=== PATIENT | female | born 1990 | race American Indian/Alaskan Native ===

== ENCOUNTER 2020-10-15 02:29 | Outpatient (CLI) | payer MEDICAID ==
[2020-10-15 03:08] VITALS: BP 95/50
[2020-10-15] MEDS ORDERED: LACTATED RINGERS 1,000 ML IV ONE (03:19)
[2020-10-15 03:42] LABS: Bacteria,Urine 1+ /HPF (Negative); Bilirubin,Urine NEG (Negative); Blood,Urine NEG (Negative); Color,Urine Yellow (Yellow); Mucus,Urine FEW /HPF; Urobilinogen,Urine < 2.0 mg/dL (<2.0)
== END 2020-10-15 05:18 | disposition home or self-care (01) ==
LOC: TRG 02:29 → APU 02:34 → TRG 05:18
PROVIDERS: ATTEND Obstetrics & Gynecology
DX: O62.9 Abnormality of forces of labor, unspecified (principal); O21.2 Late vomiting of pregnancy; Z3A.27 27 weeks gestation of pregnancy
CPT/HCPCS: 59025; 81001; 96360; J7120

== ENCOUNTER 2021-01-12 12:16 | Outpatient (CLI) | payer MEDICAID ==
--- NOTE | 2021-01-12 16:47 | Ultrasound Report ---
ULTRASOUND OBSTETRIC LIMITED INDICATION / CLINICAL INFORMATION: WELL BEING. Clinical Gestational Age (GA): 40.0 weeks.days COMPARISON: None available. FINDINGS: HEART RATE (beats per minute): 143 AMNIOTIC FLUID INDEX (cm) = 7.7 (normal = 7-24 cm) PRESENTATION: Cephalic. ADDITIONAL FINDINGS: None. IMPRESSION: 1. No significant abnormality. ROSALINA within normal limits at 7.7 cm. Signer Name: Lobo Sandra MD Signed: 01/12/2021 4:40 PM Workstation Name: [id number]
--- NOTE | 2021-01-13 07:14 | Ultrasound Report ---
Biophysical profile Ultrasound HISTORY: well being. TECHNIQUE: Grayscale and color imaging performed. COMPARISON: Limited ultrasound from the same day FINDINGS: Fetus received a score of 2 out of 2 for breathing, movement, posture/tone, and ROSALINA. Total score was 8 out of 8. IMPRESSION: Normal biophysical profile. Signer Name: Cesar Morrison MD Signed: 01/13/2021 7:10 AM Workstation Name: [id number]
== END 2021-01-12 17:30 | disposition home or self-care (01) ==
LOC: TRG 12:16 → APU 12:19 → TRG 17:30
PROVIDERS: ATTEND Obstetrics & Gynecology
DX: Z34.93 Encounter for supervision of normal pregnancy, unspecified, third trimester (principal); Z3A.40 40 weeks gestation of pregnancy
CPT/HCPCS: 76815; 76819

== ENCOUNTER 2021-01-18 03:25 | Inpatient (IN) | payer MEDICAID ==
[2021-01-18] MEDS ORDERED: METHYLERGONOVINE MALEATE 0.2 MG/ML VIAL IM PRN (03:55)
[2021-01-18] MEDS ORDERED: CARBOPROST TROMETHAMINE 250 MCG/1 ML INJ IM PRN (03:55)
[2021-01-18] MEDS ORDERED: fentaNYL 100 MCG/2 ML INJ IV PRN (03:55)
[2021-01-18] MEDS ORDERED: OXYTOCIN 10 UNIT/1 ML INJ IM PRN (03:55)
[2021-01-18] MEDS ORDERED: MINERAL OIL 30 ML ORAL LIQD PO PRN ×2 (03:55→08:00)
[2021-01-18] MEDS ORDERED: LIDOCAINE (2%) 20 MG/1 ML VIAL 20 ML MDV INFILTRATI ONE ×2 (03:55→07:25)
[2021-01-18] MEDS ORDERED: ONDANSETRON 4 MG/2 ML INJ IV PRN ×2 (03:55→09:00)
[2021-01-18] MEDS ORDERED: LOPERAMIDE 2 MG CAP PO PRN (03:55)
[2021-01-18] MEDS ORDERED: ePHEDrine SULFATE 50 MG/1 ML INJ IV PRN ×3 (03:55→08:00)
[2021-01-18] MEDS ORDERED: miSOPROStol 200 MCG TAB PR PRN (03:55)
[2021-01-18] MEDS ORDERED: TERBUTALINE 1 MG/1 ML INJ SUB-Q PRN ×2 (03:55→08:00)
[2021-01-18] MEDS ORDERED: OXYTOCIN DRIP 30 UNITS/500 ML BAG IV SCH ×3 (04:00→08:00)
[2021-01-18] MEDS ORDERED: LACTATED RINGERS 1,000 ML IV SCH ×2 (04:00→08:00)
[2021-01-18 04:17] LABS: Hematocrit 38.8 % (30.3-42.9); Hemoglobin 13.3 gm/dl (10.1-14.3); Mean Corpuscular HGB Conc 34 % (30-34); Mean Corpuscular Volume 89 fl (79-97); Platelet Count 200 K/mm3 (140-440); Red Blood Count 4.34 M/mm3 (3.65-5.03); Red Cell Distribution Width 15.4 % (13.2-15.2)
--- NOTE | 2021-01-18 05:23 | Anesthesia Consultation ---
Anesthesia Consult and Med Hx Date of service: 01/18/21 - Airway Anesthetic Teeth Evaluation: Good ROM Head & Neck: Adequate Mental/Hyoid Distance: Adequate Mallampati Class: Class II Intubation Access Assessment: Good - Pulmonary Exam CTA: Yes - Cardiac Exam Cardiac Exam: RRR - Pre-Operative Health Status ASA Pre-Surgery Classification: ASA2 Proposed Anesthetic Plan: Epidural - Pulmonary Hx Smoking: No Hx Asthma: No Hx Respiratory Symptoms: No SOB: No COPD: No Home Oxygen Therapy: No Hx Pneumonia: No Hx Sleep Apnea: No - Cardiovascular System Hx Hypertension: No Hx Coronary Artery Disease: No Hx Heart Attack/AMI: No Hx Angina: No Hx Percutaneous Transluminal Coronary Angioplasty (PTCA): No Hx Cardia Arrhythmia: No Hx Pacemaker: No Hx Internal Defibrillator: No Hx Valvular Heart Disease: No Hx Heart Murmur: No Hx Peripheral Vascular Disease: No - Central Nervous System Hx Neuromuscular Disorder: No Hx Seizures: No CVA: No Hx Back Pain: No Hx Psychiatric Problems: No - Gastrointestinal Hx Ulcer: No Hx Gastroesophageal Reflux Disease: No - Endocrine Hx Renal Disease: No Hx End Stage Renal Disease: No Hx Cirrhosis: No Hx Liver Disease: No Hx Insulin Dependent Diabetes: No Hx Non-Insulin Dependent Diabetes: No Hx Thyroid Disease: No Hx Hypothyroidism: No Hx Hyperthyroidism: No - Hematic Hx Anemia: No Hx Sickle Cell Disease: No - Other Systems Hx Alcohol Use: No Hx Substance Use: No Hx Cancer: No Hx Obesity: Yes
[2021-01-18] MEDS ORDERED: NALOXONE 2 MG/2 ML INJ IV PRN (05:24)
--- NOTE | 2021-01-18 05:26 | Progress Note ---
Labor Epidural - Labor Epidural Start Time: 04:50 Stop Time: 05:10 Performed by:: EYAD MORRIS Procedure: Patient is requesting a laboring epidural for laboring pain. Patient IDed, H&P reviewed, all questions and concerns were answered, and consent was signed. Timeout was performed at bedside. Patient in sitting position. Sterile prep and drape was performed. [3] ml of 1% lidocaine skin wheal at L[3]- L [4]. 18- gauge Tuohy epidural needle was advanced to loss of resistance with saline technique 6cm. Single dural perforation via 27 guage spinal needle placed through the shaft of Epidural needle. Positive CSF via spinal needle. Negative CSF negative blood via Epidural needle. Epidural catheter advanced to [10] centimeters. [NEGATIVE] Aspiration [NEGATIVE] test dose. Negative Paresthesia. Sterile dressing applied. Patient tolerated procedure.
[2021-01-18] MEDS ORDERED: fentaNYL-BUPIV 2 MCG/ML-0.125% 200 MCG/100 ML BAG EPIDURAL SCH (06:00)
--- NOTE | 2021-01-18 07:22 | History and Physical Report ---
History of Present Illness Date of examination: 01/18/21 Date of admission: 01/18/21 03:55 Chief complaint: active labor History of present illness: Patient is a 30-year-old -[place] 4 para 2-0-1-2 female who presents in active labor blood type is B+ antibody screen is negative Pap smear was in normal bilirubin VDRL nonreactive urine culture screen contaminated HPV antigens negative HIV was negative platelets 247,000 due to cultures negative gonorrhea chlamydia culture was negative vitamin D was 23.6 varicella-zoster was immune HIV exclude HSV 2 was positive negative ultrasound at 9 weeks diabetic screen was normal VDRL was nonreactive repeat gonorrhea chlamydia tests were negative hepatitis B was negative HIV test was negative when the patient presented she was already 7 cm dilated. Past History Past Surgical History: no surgical history Family/Genetic History: none - Obstetrical History : 4 Medications and Allergies Allergies Allergy/AdvReac Type Severity Reaction Status Date / Time Penicillins Allergy Shortness Verified 10/15/20 03:19 of Breath Active Meds: Active Medications Carboprost Tromethamine (Carboprost Tromethamine 250 Mcg/1 Ml Inj) 250 mcg IM ONCE PRN PRN Reason: Uterine Bleeding Ephedrine Sulfate (Ephedrine Sulfate 50 Mg/1 Ml Inj) 10 mg IV Q2M PRN PRN Reason: Hypotension Fentanyl (Fentanyl 100 Mcg/2 Ml Inj) 100 mcg IV Q2H PRN PRN Reason: Pain,Severe (7-10) LABOR PAIN Last Admin: 01/18/21 04:36 Dose: 100 mcg Documented by: Lactated Ringer's (Lactated Ringers) 1,000 mls @ 125 mls/hr IV DIRECT BLAIRE Last Admin: 01/18/21 04:33 Dose: 125 mls/hr Documented by: Oxytocin/Sodium Chloride (Pitocin/Ns 30 Unit/500ml) 30 units in 500 mls @ 40 mls/hr IV TITR BLAIRE; Protocol Fentanyl/Bupivacaine/Sodium Chlor (Fentanyl-Bupiv 2 Mcg/Ml-0.125%) 200 mcg in 100 mls @ 12 mls/hr EPIDURAL TITR BLAIRE; Protocol Last Admin: 01/18/21 05:34 Dose: 12 mls/hr Documented by: Loperamide HCl (Loperamide 2 Mg Cap) 2 mg PO ONCE PRN PRN Reason: give with Hemabate Methylergonovine Maleate (Methylergonovine Maleate 0.2 Mg/Ml Vial) 0.2 mg IM ONCE PRN PRN Reason: Uterine Bleeding Mineral Oil (Mineral Oil 30 Ml Oral Liqd) 30 ml PO QHS PRN PRN Reason: Constipation Misoprostol (Misoprostol 200 Mcg Tab) 800 mcg NE ONCE PRN PRN Reason: Uterine Bleeding Naloxone HCl (Naloxone 2 Mg/2 Ml Inj) 0.2 mg IV Q5M PRN PRN Reason: Respiratory sedation Ondansetron HCl (Ondansetron 4 Mg/2 Ml Inj) 4 mg IV Q8H PRN PRN Reason: Nausea And Vomiting Oxytocin (Oxytocin 10 Unit/1 Ml Inj) 10 unit IM ONCE PRN PRN Reason: Uterine Bleeding Terbutaline Sulfate (Terbutaline 1 Mg/1 Ml Inj) 0.25 mg SUB-Q ONCE PRN PRN Reason: Hyperstimulation/Hypertonicity Review of Systems All systems: negative - Vital Signs Vital signs: Vital Signs Temp Pulse Resp BP 98 F 99 H 20 134/73 01/18/21 03:30 01/18/21 03:30 01/18/21 03:30 01/18/21 03:30 Temp Pulse Resp BP Pulse Ox 98 F 90 20 109/54 100 01/18/21 03:30 01/18/21 07:17 01/18/21 03:30 01/18/21 07:11 01/18/21 07:17 - Physical Exam Breasts: Cardiovascular: Regular rate, Normal S1, Normal S2 Lungs: Positive: Clear to auscultation Abdomen: Positive: normal appearance, soft, normal bowel sounds. Negative: distention, tenderness Genitourinary (Female): Positive: normal external genitalia Vulva: both: normal Vagina: Positive: normal moisture. Negative: discharge Cervix: Negative: lesion, discharge Uterus: Positive: normal size, normal contour Adnexa: both: normal Anus/Rectum: Positive: normal perianal skin, heme negative. Negative: rectal mass, hemorrhoids Extremities: Deep Tendon Reflex Grade: Normal +2 - Obstetrical FHR: auscultation normal, category 1 Uterine Contraction Monitor Mode: External Cervical Dilatation: 10 Cervical Effacement Percentage: 100 station: +2 Uterine Contraction Frequency (min): 3min Uterine Contraction Pattern: Regular Uterine Contraction Intensity: Strong/Firm Results Result Diagrams: 01/18/21 04:00 Abnormal lab results 01/18/21 Range/Units 04:00 RDW 15.4 H (13.2-15.2) % All other labs normal. Assessment and Plan term preg in active labor. plan vaginal delivery.
[2021-01-18] MEDS ORDERED: LIDOCAINE (2%) 20 MG/1 ML VIAL 20 ML MDV INFILTRATI SCH (07:30)
--- NOTE | 2021-01-18 08:11 | Procedure Note ---
Date of procedure: 01/18/21 Pre-op diagnosis: term and active labor Post-op diagnosis: same Procedure: MALE . NO TEARS. GOOD APGARS. WGT IS . RECTAL MUCOSA IS INTACT. Anesthesia: epidural Estimated blood loss: other (350ccs) Pathology: none Specimen disposition: discarded Condition: stable Disposition: PACU
[2021-01-18] MEDS ORDERED: WITCH HAZEL/ GLYCERIN PAD TP PRN (09:00)
[2021-01-18] MEDS ORDERED: LANOLIN/ZINC/DIMETHICONE (LANSINOH) 7 GM TP PRN (09:00)
[2021-01-18] MEDS ORDERED: diphenhydrAMINE 25 MG CAP PO PRN (09:00)
[2021-01-18] MEDS ORDERED: PROMETHAZINE 25 MG TAB PO PRN (09:00)
[2021-01-18] MEDS ORDERED: PROMETHAZINE 25 MG RECT SUPP PR PRN (09:00)
[2021-01-18 11:03] LABS: Hematocrit 38.9 % (30.3-42.9); Hemoglobin 13.2 gm/dl (10.1-14.3); Mean Corpuscular HGB Conc 34 % (30-34); Mean Corpuscular Volume 90 fl (79-97); Platelet Count 195 K/mm3 (140-440); Red Blood Count 4.33 M/mm3 (3.65-5.03); Red Cell Distribution Width 15.3 % (13.2-15.2)
[2021-01-18] MEDS: IBUPROFEN 600 MG TAB PO SCH ×3 (11:34→23:38)
[2021-01-18 20:58] LABS: Hematocrit 36.6 % (30.3-42.9); Hemoglobin 12.3 gm/dl (10.1-14.3)
[2021-01-18] MEDS ORDERED: MAGNESIUM HYDROXIDE (MOM) ORAL LIQD UDC PO PRN (22:00)
[2021-01-19] MEDS: IBUPROFEN 600 MG TAB PO SCH (05:31)
--- NOTE | 2021-01-19 10:11 | Progress Note ---
Assessment and Plan A: S/P p: D/C home today if stable per pt's request Subjective - Subjective Date of service: 01/19/21 Principal diagnosis: s/p Patient reports: appetite normal, voiding normally, pain well controlled, ambulating normally [place]: doing well, bottle feeding Objective - Vital Signs Latest vital signs: Vital Signs Temp Pulse Resp BP BP Pulse Ox 01/19/21 10:01 97.8 F 77 18 107/79 97 01/19/21 00:31 98.4 F 84 18 124/72 95 01/18/21 20:13 98.4 F 88 18 118/79 97 01/18/21 17:23 18 01/18/21 16:55 98 F 86 18 126/70 97 01/18/21 10:45 97.9 F 98 H 16 121/66 97 01/18/21 10:12 89 97 Intake and Output 01/18/21 01/19/21 01/19/21 22:59 06:59 14:59 Intake Total 300 300 Balance 300 300 Intake: Intake, Free Water 300 300 Other: # Voids Void 1 1 - Exam Breasts: Present: normal Abdomen: Present: normal appearance, soft, normal bowel sounds Vulva: both: normal Uterus: Present: normal, firm, fundal height below umbilicus Extremities: Present: normal - Labs Labs: Abnormal lab results 01/18/21 Range/Units 10:16 RDW 15.3 H (13.2-15.2) %
--- NOTE | 2021-01-19 10:13 | Discharge Summary ---
Providers - Providers Date of Admission: 01/18/21 03:55 Date of discharge: 01/19/21 Attending physician: MICHAEL VERNON MD Primary care physician: MICHAEL VERNON MD Hospitalization Reason for admission: active labor Delivery: Episiotomy: none Laceration: none Other procedures: none complications: none Discharge diagnosis: IUP at term delivered baby: male Hospital course: Pt was amitted in active labor. She had a w/o pp complications. See h&p, delivery summary, and pp notes. Condition at discharge: Stable Disposition: DC-01 TO HOME OR SELFCARE Plan - Discharge Medications Prescriptions: Ibuprofen [Motrin 600 MG tab] 600 mg PO Q6H #30 tablet - Provider Discharge Summary Additional instructions: [] Smoking cessation referral if applicable(refer to patient education folder for contact #) [] Refer to [facility] Booklet Call your doctor immediately for: * Fever > 100.5 * Heavy vaginal bleeding ( >1 pad per hour) * Severe persistent headache * Shortness of breath * Reddened, hot, painful area to leg or breast * Drainage or odor from incision. * Keep incision clean and dry at all times and follow doctor's instructions regarding bathing/showering - Follow up plan Follow up: MICHAEL VERNON MD [Primary Care Provider] - 6 Weeks
[2021-01-19 13:31] VITALS: BP 135/77
== END 2021-01-19 13:32 | disposition home or self-care (01) | DRG 774 ==
LOC: TRG 03:25 → APU 03:35 → TRG 03:55 → LD 03:55 → OB 10:51
PROC: 10E0XZZ Delivery of Products of Conception, External Approach (ICD-10-PCS; principal; 2021-01-18)
PROC: 3E0R3BZ Introduction of Anesthetic Agent into Spinal Canal, Percutaneous Approach (ICD-10-PCS; 2021-01-18)
PROC: 00HU33Z Insertion of Infusion Device into Spinal Canal, Percutaneous Approach (ICD-10-PCS; 2021-01-18)
DX: O98.52 Other viral diseases complicating childbirth (principal); B00.9 Herpesviral infection, unspecified; Z20.822 Contact with and (suspected) exposure to COVID-19; Z37.0 Single live birth; Z3A.40 40 weeks gestation of pregnancy; Z88.0 Allergy status to penicillin
CPT/HCPCS: 36415; 59025; 85014; 85018; 85027; 86592; 86850; 86900; 86901; G0378; J3010; J7120; U0003